=== PATIENT | male | born 1980 | race Two or more races ===

== ENCOUNTER 2024-11-28 06:07 | Day surgery (SDC) | payer OTHER ==
[~2024-11-28] VITALS: Ht 180.3 cm; Wt 89.8 kg
[2024-11-28] MEDS ORDERED: KETAMINE 50mg/ML 1ml syringe IV ONE (06:08)
[2024-11-28] MEDS ORDERED: KETOROLAC TROMETH 30 MG/ML 1ML VIAL ONE (06:58)
[2024-11-28] MEDS ORDERED: LIDOCAINE 2% (LOCAL ANESTH.) PF 5ml SDV ONE (06:58)
[2024-11-28] MEDS ORDERED: ONDANSETRON HCL 4 MG/2 ML VIAL ONE (06:58)
[2024-11-28] MEDS ORDERED: LIDOCAINE HCL 2% TOP JELLY 5ML TOP ONE (06:58)
[2024-11-28] MEDS ORDERED: PROPOFOL 10 MG/ML 20 ML IV ONE (06:59)
[2024-11-28] MEDS ORDERED: GLYCOPYRROLATE 0.2 MG/ML 1ML VIAL ONE (06:59)
[2024-11-28] MEDS ORDERED: HEPARIN SODIUM (PORCINE) 5000 UNITS/ML 1ML VIAL SC ONE (07:00)
[2024-11-28] MEDS: ACETAMINOPHEN IV 1000 MG/100ML (10MG/ML) IV ONE (07:14)
[2024-11-28] MEDS: HEPARIN SODIUM (PORCINE) 5000 UNITS/ML 1ML VIAL ONE (07:14)
[2024-11-28] MEDS: CELECOXIB 100 MG CAP PO ONE (07:14)
[2024-11-28] MEDS: GABAPENTIN 300 MG CAP PO ONE (07:14)
[2024-11-28] MEDS: ceFAZolin 2 GM/D5W50ml 50 ML IV ONE (07:20)
[2024-11-28] MEDS ORDERED: fentaNYL CITRATE 100 MCG/2 ML VL ONE (07:36)
[2024-11-28] MEDS: BUPIVACAINE HCL 50 ML ONE (07:42)
[2024-11-28] MEDS: LIDOCAINE 1% HCL (LOCAL ANESTH.) INJ 20ML MDV ONE (07:42)
[2024-11-28 08:56] VITALS: PULSE 86; RESP 12; TEMP 97.7
[2024-11-28] MEDS ORDERED: HYDR-4902 PO (08:59)
[2024-11-28] MEDS ORDERED: fentaNYL CITRATE 100 MCG/2 ML VL IV PRN (09:15)
[2024-11-28] MEDS ORDERED: ONDANSETRON HCL 4 MG/2 ML VIAL IV PRN (09:15)
[2024-11-28] MEDS ORDERED: FLUMAZENIL 0.1 MG/ML INJ 10ML MDV IV PRN (09:15)
[2024-11-28] MEDS ORDERED: HYDROmorphone HCL 2 MG/ML VL/or syr IV PRN (09:15)
[2024-11-28] MEDS ORDERED: NALOXONE HCL 0.4 MG/ML VIAL IV PRN (09:15)
[2024-11-28] MEDS ORDERED: hydrALAZINE HCL 20 MG/ML VL IV PRN (09:15)
[2024-11-28 09:26] VITALS: BP 141/83; PULSE 64; RESP 12; O2SAT 98
--- NOTE | 2024-11-28 09:26 | DVHOP ---
DATE OF SURGERY: 11/28/2024 PREOPERATIVE DIAGNOSIS: Right inguinal hernia. POSTOPERATIVE DIAGNOSIS: Direct right inguinal hernia. PROCEDURES: Right inguinal hernia repair with mesh. Right ilioinguinal nerve block. SURGEON: Enzo Hackett MD [place] FORMER: None. ANESTHESIOLOGIST: Mesfin Gonzales CRNA. ANESTHESIA: General by means of endotracheal intubation. INTRAOPERATIVE FINDINGS: Extremely enlarged direct inguinal hernia coalescing with the internal ring. ESTIMATED BLOOD LOSS: Minimal. IV FLUIDS: Per anesthesia charting. URINE OUTPUT: Not recorded given a Lama catheter was not inserted. DRAINS: None. IMPLANTS: Extra large polypropylene plug x 2 and a polypropylene patch. SPECIMENS: None. COMPLICATIONS: None other than difficult procedure secondary to above-mentioned intraoperative findings. DISPOSITION: Procedure well tolerated and transferred to the recovery room in stable condition. INDICATIONS FOR PROCEDURE: The patient is a 44-year-old male with a right inguinal hernia. Based on the above-mentioned information, he was recommended to undergo repair. The procedure, risks, and benefits were explained in a detailed and extensive fashion. All questions were answered. He understood and agreed to proceed. DESCRIPTION OF PROCEDURE: The patient was met in the preoperative holding area. The patient had no questions at the time and denied any changes since his last visit. The right inguinal region was marked, indicating the correct site of the procedure. He was then transported to the operating room where he was placed in the dorsal decubitus position on the operating room table. Once adequate anesthesia was achieved, the abdomen and pelvis were widely clipped from all hair surrounding the surgical field. It was then widely prepped and draped in the usual sterile fashion. My attention was directed towards the right inguinal region, where a right ilioinguinal nerve block was performed using 1% lidocaine/0.5% Marcaine. The incision site was also anesthetized with the previously mentioned solution. A transverse right inguinal incision was made. The dermis and subcutaneous tissue were incised to the level of the external oblique aponeurosis with electrocautery. The external oblique aponeurosis was incised with a 15 blade. The external oblique aponeurosis was incised cephalad and then caudally towards the external ring using Metzenbaum scissors while preventing injury to underlying structures. The spermatic cord structures were dissected at the level of the pubic tubercle. The patient demonstrated a large hernia, suspected to be direct. The cremasteric fiber was dissected from the spermatic cord structures, confirming the presence of a direct inguinal hernia without an indirect inguinal hernia component. The direct inguinal hernia sac was dissected circumferentially to the level of the abdominal wall. It was reduced, demonstrating a very large defect of approximately 6-7 cm in diameter. Extra large polypropylene plugs were sutured together with 0 PDS sutures and placed in the preperitoneal space after reducing the hernia. The plugs were circumferentially sutured to the abdominal wall, shelving edge of the inguinal ligament. Polypropylene patch was then placed in an onlay fashion secured to the overlying fascia at the level of the pubic tubercle without incorporating bone. This was secured with 0 PDS suture. Several 0 PDS sutures were utilized to secure the mesh laterally against the shelving edge of the inguinal ligament. The patient had a very weak and poor quality inguinal ligament. The spermatic cord was placed within the prefabricated slit of the mesh and interrupted 0 PDS sutures were utilized to secure the mesh medially against the transverse abdominus aponeurotic arch. The tails of the mesh were secured together by means of a 0 PDS suture, being careful not to strangulate the spermatic cord. Of note, the ilioinguinal nerve was searched carefully and thoroughly without proper identification. The wound was washed and dried. There was no evidence of active bleeding. The external oblique aponeurosis was closed with a running 3-0 Vicryl suture. Manan's was approximated with several interrupted 3-0 Vicryl suture. The skin was closed with 4-0 Monocryl in a subcuticular fashion. The wounds were washed and dried. Sterile dressings were applied. The patient tolerated well the procedure. There were no complications other than being a difficult procedure. He was successfully extubated in the operating room and transferred to the recovery room in stable condition. MD LUNA Auguste/PATRICK TID: [id number] RECEIPT: [id number]
== END 2024-11-28 09:55 | disposition home or self-care (01) ==
LOC: SUR 06:07
DX: K40.90 Unilateral inguinal hernia, without obstruction or gangrene, not specified as recurrent (principal); E66.3 Overweight; Z68.27 Body mass index [BMI] 27.0-27.9, adult
CPT/HCPCS: 49505; 86850; 86900; 86901; J0690; J1100; J1644; J1885; J2003; J2405; J2704; J3010; J3490; J0131